=== PATIENT | male | born 1945 | race Caucasian/White ===

== ENCOUNTER → 2019-04-25 | Outpatient (CLI) | payer MEDICARE ==
[2019-04-25 14:29] LABS: BASOPHILS # (AUTO) 0.03 x10^3/uL (0-0.1); BASOPHILS % (AUTO) 0 % (0-1); EOSINOPHILS # (AUTO) 0.01 x10^3/uL (0-0.4); EOSINOPHILS % (AUTO) 0 % (1-7); LYMPHOCYTES # (AUTO) 0.73 x10^3/uL (1-3.4); LYMPHOCYTES % (AUTO) 6 % (22-44); MD NO; MEAN CORPUSCULAR HEMOGLOBIN 29.9 pg (27.5-34.5); MEAN CORPUSCULAR HGB CONC 32.7 g/dL (33.2-36.2); MEAN CORPUSCULAR VOLUME 91.5 fL (81-97); MEAN PLATELET VOLUME 7.8 fL (7.4-10.4); MONOCYTES # (AUTO) 0.77 x10^3/uL (0.2-0.8); MONOCYTES % (AUTO) 6 % (2-9); NEUTROPHILS # (AUTO) 10.51 x10^3/uL (1.8-6.8); NEUTROPHILS % (AUTO) 87 % (42-75); PLATELET COUNT 312 x10^3/uL (130-400)
[2019-04-25 14:31] LABS: INTERNATIONAL NORMALIZED RATIO 0.91 (0.93-1.1); PROTHROMBIN TIME 9.6 Seconds (9.6-11.5)
[2019-04-25 14:35] LABS: ALBUMIN 3.5 g/dL (3.4-5.0); ANION GAP 7 mmol/L (5-15); CALCIUM 9.2 mg/dL (8.5-10.1); CHLORIDE 100 mmol/L (98-107)
[2019-04-25 14:39] LABS: ALANINE AMINOTRANSFERASE 18 U/L (12-78); ALKALINE PHOSPHATASE 112 U/L (45-117); BILIRUBIN,TOTAL 0.4 mg/dL (0.2-1.0); CREATININE 0.82 mg/dL (0.7-1.3); TOTAL PROTEIN 7.2 g/dL (6.4-8.2)
== END | disposition home or self-care (01) ==
LOC: STAR 13:03
PROVIDERS: ATTEND Neurological Surgery
DX: Z01.818 Encounter for other preprocedural examination (principal); G25.0 Essential tremor
CPT/HCPCS: 36415; 80053; 85025; 85610; 85730; 93005

== ENCOUNTER 2019-04-29 13:57 | Outpatient (CLI) | payer MEDICARE | END 2019-04-29 23:59 | disposition home or self-care (01) | LOC: CFH 13:57 | PROVIDERS: ATTEND Neurological Surgery | DX: G25.0 Essential tremor (principal) | CPT/HCPCS: 70460; Q9967 ==

== ENCOUNTER 2019-05-05 05:31 | Inpatient (IN) | payer MEDICARE ==
[~2019-05-05] VITALS: Ht 175.3 cm; Wt 61.9 kg
[~2019-05-05 05:31] MED LIST: ALBU8.5H8 INH; ASPI-496 PO; ATOR-2 PO; CLOP75TA PO; DILT120C64 PO; FLUT1DIS3 INH; Oxygen IH; PRED5TAB PO; SPIR25TA5 PO; TIOT18CA INH
[2019-05-05] MEDS ORDERED: BUPIVACAINE/PF-EPI 0.5% 1:200K ONE (06:24)
[2019-05-05] MEDS ORDERED: NITROPRUSSIDE 25 MG/ML, 2ML ONE (06:24)
[2019-05-05] MEDS ORDERED: BACITRACIN 50,000 UNIT ONE (06:25)
[2019-05-05] MEDS ORDERED: LIDOCAINE/MPF 2%-EPI 1:200K, 20 ML ONE (06:25)
[2019-05-05] MEDS ORDERED: SODIUM BICARBONATE 1 MEQ/ML, 50ML VIAL ONE (06:25)
[2019-05-05] MEDS ORDERED: THROMBIN 5,000 UNIT VIAL TP ONE (06:25)
[2019-05-05] MEDS ORDERED: BACITRACIN OINT 500U/GM, 15 GM ONE (06:25)
[2019-05-05] MEDS ORDERED: MINERAL OIL 10 ML VIAL MC ONE (06:25)
[2019-05-05] MEDS ORDERED: LACTATED RINGERS 1,000 ML IV SCH (06:26)
[2019-05-05 06:52] LABS: INTERNATIONAL NORMALIZED RATIO 0.94 (0.93-1.1); PROTHROMBIN TIME 9.9 Seconds (9.6-11.5)
[2019-05-05] MEDS ORDERED: ESMOLOL/NS 2,500 MG/250 ML PREMIX ONE (07:31)
[2019-05-05] MEDS ORDERED: DEXMEDETOMIDINE 200 MCG/2 ML ONE (07:56)
[2019-05-05] MEDS ORDERED: ALBUTEROL/IPRATROPIUM 2.5MG/0.5MG, 3 ML NEB ONE (08:30)
[2019-05-05] MEDS ORDERED: ALBUTEROL/IPRATROPIUM 2.5MG/0.5MG, 3 ML ONE (08:37)
[2019-05-05] MEDS ORDERED: OXYcodone 5 MG/5 ML ORAL.SOL UDC PO PRN (10:30)
[2019-05-05] MEDS ORDERED: DIAZEPAM 5 MG/ML, 2ML IVPush PRN (10:30)
[2019-05-05] MEDS ORDERED: ONDANSETRON 2MG/ML, 2ML IV PRN (10:30)
[2019-05-05] MEDS ORDERED: ACETAMINOPHEN 325 MG TABLET PO PRN (10:30)
[2019-05-05] MEDS ORDERED: FENTANYL PF 100 MCG/2ML IV PRN (10:30)
[2019-05-05] MEDS ORDERED: PROMETHAZINE 25 MG/ML, 1ML IV PRN (10:30)
[2019-05-05] MEDS ORDERED: HYDROmorphone 2 MG/ML, 1ML IVPush PRN (10:30)
[2019-05-05] MEDS ORDERED: ONDANSETRON ODT 8 MG PO PRN (10:30)
[2019-05-05] MEDS ORDERED: ALBUTEROL/IPRATROPIUM 2.5MG/0.5MG, 3 ML NPPB PRN (10:30)
[2019-05-05] MEDS ORDERED: BACITRACIN OINT 500U/GM, 15 GM TP ONE (13:03)
[2019-05-05] MEDS ORDERED: TEMPLATE NON-FORMULARY MED. (Albuterol Sulfate (Proair Hfa) 2 PUFF(S)) INH PRN (13:30)
[2019-05-05] MEDS ORDERED: TEMPLATE NON-FORMULARY MED. ([Oxygen] 2 L) IH SCH (13:30)
[2019-05-05] MEDS ORDERED: morphine SULFATE 10 MG/ML, 1ML IV PRN (13:30)
[2019-05-05] MEDS: OXYcodone/APAP 5/325MG TABLET PO PRN ×2 (14:36→15:11)
[2019-05-05] MEDS: POTASSIUM CHLORIDE 40 MEQ in SODIUM CHLORIDE 0.9% 1,000 ML IV SCH (14:41)
[2019-05-05] MEDS: CEFAZOLIN PMX 1GM/50ML 50 ML IVPB SCH ×2 (14:42→23:10)
[2019-05-05] MEDS ORDERED: PROPOFOL 10 MG/ML, 20ML ONE (15:11)
[2019-05-05] MEDS ORDERED: CEFAZOLIN 1,000 MG ONE (15:12)
[2019-05-05] MEDS ORDERED: MORPHINE SULFATE 4 MG/ML, 1ML ONE (16:59)
[2019-05-05] MEDS ORDERED: TEMPLATE NON-FORMULARY MED. (Fluticasone/Salmeterol** (Advair 250-50 Diskus**) 1 PUFF) INH SCH (21:00)
[2019-05-05] MEDS ORDERED: ATORVASTATIN 80 MG TABLET PO SCH (21:00)
[2019-05-05] MEDS ORDERED: BUDESONIDE 0.5 MG/2 ML INHA INH SCH (21:39)
[2019-05-05] MEDS ORDERED: ALBUTEROL SULFATE 2.5 MG/3 ML NPPB SCH (22:00)
[2019-05-05] MEDS ORDERED: IPRATROPIUM 0.5 MG/2.5 ML INHA NPPB SCH (22:00)
[2019-05-06] MEDS: POTASSIUM CHLORIDE 40 MEQ in SODIUM CHLORIDE 0.9% 1,000 ML IV SCH (03:41)
[2019-05-06 04:00] VITALS: BP 119/69
[2019-05-06] MEDS ORDERED: TEMPLATE NON-FORMULARY MED. (Tiotropium Bromide** (Spiriva**) 18 MCG) INH SCH (09:00)
[2019-05-06] MEDS ORDERED: DILTIAZEM 120 MG CAP.ER.24H PO SCH (09:00)
[2019-05-06] MEDS ORDERED: SPIRONOLACTONE 25 MG TABLET PO SCH (09:00)
[2019-05-29] MEDS ORDERED: ASPI-496 PO (22:36)
[2019-06-01] MEDS ORDERED: CEPH-368 PO (11:04)
== END 2019-05-06 09:25 | disposition home or self-care (01) | DRG 27 ==
LOC: ORIP 05:31 → EDSTATUS 07:30 → ICU 14:01 → DCLOUNGE 05-06 09:15
PROVIDERS: ADMIT Neurological Surgery; ATTEND Neurological Surgery
PROC: 4A11X4G Monitoring of Peripheral Nervous Electrical Activity, Intraoperative, External Approach (ICD-10-PCS; 2019-05-05)
PROC: 03HY32Z Insertion of Monitoring Device into Upper Artery, Percutaneous Approach (ICD-10-PCS; 2019-05-05)
PROC: 00H03MZ Insertion of Neurostimulator Lead into Brain, Percutaneous Approach (ICD-10-PCS; principal; 2019-05-05 07:30)
DX: G25.0 Essential tremor (principal); J44.9 Chronic obstructive pulmonary disease, unspecified; I10 Essential (primary) hypertension; Z99.81 Dependence on supplemental oxygen; I25.2 Old myocardial infarction; Z95.5 Presence of coronary angioplasty implant and graft; Z88.8 Allergy status to other drugs, medicaments and biological substances; Z91.040 Latex allergy status
CPT/HCPCS: 36415; 70450; 85610; 86850; 86900; 87081; 94640; G0378; J0690; J2704; J3480; J3490; J7613; J7620; J7644; C1767; J2270; J7030; J7120; J7512

== ENCOUNTER 2019-05-19 11:21 | Day surgery (SDC) | payer MEDICARE ==
[~2019-05-19] VITALS: Ht 175.3 cm; Wt 59.0 kg
[2019-05-19 11:46] VITALS: BP 118/73
== END 2019-05-19 18:10 | disposition home or self-care (01) ==
LOC: OUT 11:21
PROVIDERS: ATTEND Neurological Surgery
DX: G25.0 Essential tremor (principal); I11.0 Hypertensive heart disease with heart failure; I50.9 Heart failure, unspecified; E78.00 Pure hypercholesterolemia, unspecified; I25.2 Old myocardial infarction; J43.9 Emphysema, unspecified; K21.9 Gastro-esophageal reflux disease without esophagitis; F17.210 Nicotine dependence, cigarettes, uncomplicated; Z85.118 Personal history of other malignant neoplasm of bronchus and lung; Z79.82 Long term (current) use of aspirin; Z88.8 Allergy status to other drugs, medicaments and biological substances; Z91.040 Latex allergy status
CPT/HCPCS: 61886; C1767; C1883; J0171; J0690; J1100; J2370; J2405; J2704; J3010; J7120; L8681; 36415; 86900